=== PATIENT | female | born 1965 | race Caucasian/White ===

== ENCOUNTER 2017-07-18 14:21 | Emergency (ER) | payer OTHER ==
[~2017-07-18] VITALS: Ht 154.9 cm; Wt 74.8 kg
[~2017-07-18 14:21] MED LIST: ATENOLOL50 MG PO; FLEXERIL10 MG PO; NAPROSYN500 MG PO
[2017-07-18 18:07] VITALS: BP 148/74
== END 2017-07-18 18:07 | disposition home or self-care (01) ==
LOC: ED 14:21
DX: H60.502 Unspecified acute noninfective otitis externa, left ear (principal)

== ENCOUNTER 2018-02-08 22:09 | Emergency (ER) | payer SELFPAY ==
[~2018-02-08] VITALS: Ht 154.9 cm; Wt 74.8 kg
[2018-02-08 22:27] VITALS: Ht 154.9 cm; Wt 74.8 kg
[2018-02-08 23:53] VITALS: BP 153/86
== END 2018-02-08 23:53 | disposition home or self-care (01) ==
LOC: ED 22:09
DX: I10 Essential (primary) hypertension (principal); Z76.0 Encounter for issue of repeat prescription